=== PATIENT | female | born 1980 | race Caucasian/White ===

== ENCOUNTER 2019-05-30 23:11 | Inpatient (IN) ==
[2019-05-31] MEDS ORDERED: SODIUM CHLORIDE 0.9% 500 ML IV STA
[2019-05-31] MEDS ORDERED: PANTOPRAZOLE 40 MG VIAL IV STA
[2019-05-31] MEDS ORDERED: ONDANSETRON 4 MG/2 ML VIAL IV STA
[2019-05-31 00:58] LABS: Apearance,Urine CLEAR (Clear); Bilirubin,Urine Negative (Negative); Blood, Urine Moderate mg/dL (Negative); Glucose,Urine (UA) Negative (Negative); Ketones,Urine Negative (Negative); Nitrite,Urine Negative (Negative); Protein,Urine Negative; RBC,Urine 1 /HPF (0-4); Squamous Epithelial Cell,Urine Occasional /HPF (0-10); Urine Color Yellow (Yellow); Urine Specific Gravity 1.012 (1.001-1.035); Urine Urobilinogen < 2.0 EU/DL (0.2-1.0); WBC,Urine 1 /HPF (0-6)
[2019-05-31 01:07] LABS: Basophils # 0.1 10*3/uL (0.0-0.2); Basophils % 0.6 % (0.0-0.8); Eosinophils # 0.3 10*3/uL (0.0-0.87); Eosinophils % 2.3 % (0.00-10.9); Hematocrit 37.8 VOL% (35.7-47.0); Hemoglobin 12.8 GM/DL (12.0-16.0); Immature Granulocytes % 0.4 %; Immature Granulocytes Absolute 0.06 #; Lymphocytes # 2.6 10*3/uL (1.4-4.0); Lymphocytes % 17.9 % (21.3-54.2); Mean Corpuscular HGB Conc 33.9 GM/DL (32-36); Mean Corpuscular Volume 90.6 FL (87-102); Mean Platelet Volume 9.2 FL (9.6-12.0); Monocytes % 5.9 % (1.7-12.7); Neutrophils % 72.9 % (38.7-73.9); Platelet Count 233 T/CUMM (130-400); Red Blood Count 4.17 MC/CUMM (3.8-5.5); Red Cell Distribution Width 13.8 % (9.3-17.3); White Blood Count 14.5 T/CUMM (4-12)
[2019-05-31] MEDS ORDERED: LEVOFLOXACIN INJ 750 MG in PREMIX 1 EACH IV STA (01:13)
[2019-05-31 01:28] LABS: Albumin 3.9 G/DL (3.4-5.0); Bilirubin,Total 0.4 MG/DL (0.2-1.0); Calcium 9.2 MG/DL (8.5-10.1); Osmolality,Calculated 276.5 MOS/KG (273-304); Total Protein 6.8 G/DL (6.4-8.3)
[2019-05-31] MEDS ORDERED: HYDROmorphone 2 MG/1 ML VIAL IV STA ×2 (01:28)
[2019-05-31] MEDS ORDERED: ONDANSETRON 4 MG/2 ML VIAL IV PRN ×2 (02:25→13:17)
[2019-05-31] MEDS ORDERED: HYDROmorphone 2 MG/1 ML VIAL IV PRN (02:25)
[2019-05-31] MEDS ORDERED: ACETAMINOPHEN 325 MG TABLET PO PRN (02:25)
[2019-05-31] MEDS: SODIUM CHLORIDE 0.9% 1,000 ML IV SCH ×2 (03:03→15:39)
[2019-05-31 06:36] LABS: Basophils # 0.1 10*3/uL (0.0-0.2); Basophils % 0.6 % (0.0-0.8); Eosinophils # 0.2 10*3/uL (0.0-0.87); Eosinophils % 1.6 % (0.00-10.9); Hematocrit 37.6 VOL% (35.7-47.0); Hemoglobin 12.6 GM/DL (12.0-16.0); Immature Granulocytes % 0.5 %; Immature Granulocytes Absolute 0.06 #; Lymphocytes # 3.1 10*3/uL (1.4-4.0); Lymphocytes % 24.8 % (21.3-54.2); Mean Corpuscular HGB Conc 33.5 GM/DL (32-36); Mean Corpuscular Volume 90.4 FL (87-102); Monocytes % 5.7 % (1.7-12.7); Neutrophils % 66.8 % (38.7-73.9); Platelet Count 259 T/CUMM (130-400); Red Blood Count 4.16 MC/CUMM (3.8-5.5); Red Cell Distribution Width 13.8 % (9.3-17.3); White Blood Count 12.6 T/CUMM (4-12)
[2019-05-31 07:00] LABS: Albumin 3.5 G/DL (3.4-5.0); Bilirubin,Total 0.6 MG/DL (0.2-1.0); Calcium 8.6 MG/DL (8.5-10.1); Total Protein 6.4 G/DL (6.4-8.3)
[2019-05-31] MEDS ORDERED: PANTOPRAZOLE 40 MG VIAL IV SCH (09:00)
[2019-05-31] MEDS ORDERED: CLINDAMYCIN INJ 900 MG in PREMIX 1 EACH IV ONE (09:02)
[2019-05-31] MEDS ORDERED: TISSUE ADHESIVE 1 EACH APPLICATOR TOP ONE (11:16)
[2019-05-31] MEDS ORDERED: SCOPOLAMINE 1.5 MG PATCH TRANSDERM ONE (11:30)
[2019-05-31] MEDS ORDERED: HYDROmorphone 2 MG/1 ML VIAL ONE (13:16)
[2019-05-31] MEDS ORDERED: ONDANSETRON 4 MG/2 ML VIAL ONE (13:16)
[2019-05-31] MEDS ORDERED: MEPERIDINE 25 MG/1 ML VIAL IV PRN (13:17)
[2019-05-31] MEDS ORDERED: DEXAMETHASONE 4 MG/1 ML VIAL ONE (13:20)
[2019-05-31] MEDS ORDERED: PROPOFOL 200 MG/20 ML VIAL IV ONE (13:20)
[2019-05-31] MEDS ORDERED: SEVOFLURANE 1 UNIT/15 MINUTE INH ONE (13:20)
[2019-05-31] MEDS: HYDROmorphone 2 MG/1 ML VIAL IV PRN ×2 (13:20→13:25)
[2019-05-31] MEDS ORDERED: LIDOCAINE 2% 5 ML VIAL ONE (13:20)
[2019-05-31] MEDS ORDERED: MIDAZOLAM 2 MG/2 ML VIAL ONE (13:20)
[2019-05-31] MEDS ORDERED: fentaNYL 100 MCG/2 ML VIAL ONE ×2 (13:20→13:23)
[2019-05-31] MEDS ORDERED: ROCURONIUM 100 MG/10 ML VIAL IV ONE (13:21)
[2019-05-31] MEDS ORDERED: GLYCOPYRROLATE 0.4 MG/2 ML VIAL ONE (13:21)
[2019-05-31] MEDS ORDERED: NEOSTIGMINE 10 MG/10 ML VIAL ONE (13:21)
[2019-05-31 17:04] VITALS: BP 112/60
[2019-06-01] MEDS ORDERED: LEVOFLOXACIN INJ 750 MG in PREMIX 1 EACH IV SCH (02:00)
== END 2019-05-31 17:45 | disposition home or self-care (01) | DRG 419 ==
LOC: N.ED 23:11 → N.EDINP 05-31 01:33 → N.3E 05-31 02:08
PROVIDERS: ADMIT Student in an Organized Health Care Education/Training Program; ATTEND Student in an Organized Health Care Education/Training Program
PROC: LAPCHOL (2019-05-31 11:30)